=== PATIENT | male | born 1995 | race American Indian/Alaskan Native ===

== ENCOUNTER 2021-02-06 15:13 | Emergency (ER) | payer SELFPAY ==
[2021-02-06 15:17] VITALS: BP 130/66
[2021-02-06] MEDS ORDERED: FLUORESCEIN 1 MG STRIP OP ONE (15:39)
--- NOTE | 2021-02-06 16:49 | Emergency Department Report ---
ED Eye Problem HPI - General Chief complaint: Eye Problems Stated complaint: RIGHT EYE PROBLEM Source: patient Mode of arrival: Ambulatory Limitations: No Limitations - History of Present Illness Initial comments: The patient was evaluated in the emergency department for symptoms described in the history of present illness. He/she was evaluated in the context of the global COVID-19 pandemic, which necessitated consideration that the patient might be at risk for infection with the virus that causes COVID-19. Institutional protocols and algorithms that pertain to the evaluation of patients at risk for COVID-19 are in a state of rapid change based on information released by regulatory bodies including the CDC and federal and state organizations. These policies and algorithms were followed during the patient's care in the emergency department. Please note that these policies, procedures and recommendations changed on a rapid basis. 25-year-old -[place] male presents to the emergency room 30 minutes prior to having dark find his eye while at work. Patient states that he went to rub his eye started having pain and irritation. Patient does wear contacts and did not remove his contacts prior to irrigating his eye. MD chief complaint: foreign body Onset/Timin -: minutes(s) (Prior to arrival) Onset Description: gradual Location: right eye Place: work Eye Symptoms: redness, pain, foreign body sensation Severity scale (0 -10): 5 If Pain, Quality: aching Consistency: constant Context: contact lens use Treatments Prior to Arrival: irrigated eye - Related Data Patient Tetanus UTD: Yes Previous Rx's Medication Instructions Recorded Last Taken Type Moxifloxacin 0.5% 1 drops OP Q8H 10 Days #1 bottle 02/06/21 Unknown Rx Allergies Allergy/AdvReac Type Severity Reaction Status Date / Time No Known Allergies Allergy Unverified 02/06/21 15:14 ED Review of Systems ROS: Stated complaint: RIGHT EYE PROBLEM Other details as noted in HPI Comment: All other systems reviewed and negative ED Past Medical Hx - Past Medical History Previous Medical History?: Yes Additional medical history: HEART MURMU - Surgical History Past Surgical History?: No - Medications Home Medications: Home Medications Medication Instructions Recorded Confirmed Last Taken Type Moxifloxacin 0.5% 1 drops OP Q8H 10 Days #1 bottle 02/06/21 Unknown Rx ED Physical Exam - General Limitations: No Limitations General appearance: alert, in no apparent distress - Head Head exam: Present: atraumatic, normocephalic - Eye Eye exam: Present: conjunctival injection - Expanded Eye Exam Expanded Eyelids: Normal Inspection: Right Pupils: Regular, Round: Bilateral, Reactive: Bilateral Sclera/Conjunctival: Injection: Right - ENT ENT exam: Present: mucous membranes moist - Neck Neck exam: Present: normal inspection, full ROM - Respiratory Respiratory exam: Absent: respiratory distress - Cardiovascular Cardiovascular Exam: Present: regular rate - Extremities Exam Extremities exam: Present: normal inspection, full ROM - Neurological Exam Neurological exam: Present: alert, oriented X3, normal gait - Psychiatric Psychiatric exam: Present: normal affect, normal mood - Skin Skin exam: Present: warm, dry, intact, normal color. Absent: rash ED Course Vital Signs 02/06/21 15:15 Temperature 98.3 F Pulse Rate 71 Respiratory 16 Rate Blood Pressure 130/66 O2 Sat by Pulse 98 Oximetry ED Medical Decision Making - Medical Decision Making 25-year-old -[place] male presents to the emergency room 30 minutes prior to having dark find his eye while at work. Patient states that he went to rub his eye started having pain and irritation. Patient does wear contacts and did not remove his contacts prior to irrigating his eye. Fluorescein exam with very little uptake after patient removed contact. Irrigated at the eyewash in Main ER. Patient will be covered with moxifloxacin. Follow-up with an hot plate plywood press offbearer I have listed to for his discharge summary. Critical care attestation.: If time is entered above; I have spent that time in minutes in the direct care of this critically ill patient, excluding procedure time. ED Disposition Clinical Impression: Corneal abrasion, right Disposition: HOME / SELF CARE / HOMELESS Is pt being admited?: No Does the pt Need Aspirin: No Condition: Stable Instructions: Corneal Abrasion, [id number] Additional Instructions: Use eyedrops as prescribed. Do not use your contacts until you have completed antibiotics. Wear your glasses. Follow-up with an hot plate plywood press offbearer I have listed 2 locations for your convenience. Prescriptions: Moxifloxacin 0.5% 1 drops OP Q8H 10 Days #1 bottle Referrals: [facility] [Provider Group] - 3-5 Days [facility] [employer] [place] [Provider Group] - 3-5 Days Forms: Work/School Release Form(ED) Time of Disposition: 16:54
== END 2021-02-06 17:18 | disposition home or self-care (01) ==
LOC: ED 15:13
DX: S05.01XA Injury of conjunctiva and corneal abrasion without foreign body, right eye, initial encounter (principal); X58.XXXA Exposure to other specified factors, initial encounter; Y93.89 Activity, other specified; Y92.89 Other specified places as the place of occurrence of the external cause; Y99.8 Other external cause status
CPT/HCPCS: 99282